=== PATIENT | female | born 1970 | race American Indian/Alaskan Native ===

== ENCOUNTER 2020-01-25 14:42 | Emergency (ER) | payer MEDICARE ==
[2020-01-25 15:09] VITALS: BP 194/114
[2020-01-25] MEDS ORDERED: MORPHINE 4 MG/1 ML INJ IV ONE (19:02)
[2020-01-25] MEDS ORDERED: ONDANSETRON 4 MG/2 ML INJ IV ONE (19:02)
--- NOTE | 2020-01-25 19:33 | Emergency Department Report ---
HPI - General Chief Complaint: Allergic Reaction Time Seen by Provider: 01/25/20 19:00 - HPI HPI: The patient 49-year-old female who presents for right lower jaw dental abscess. Patient states throat and ear pain x2 days with intermittent fever no T-max r ecorded no fever noted in triage today. Patient states pain is 8/10 right lower jaw pain is exacerbated by movement palpation and eating. Patient is swallowing p.o. however swallowing does increase pain. Patient states intermittent tinnitus. Patient states she came in today because she was unable to open her mouth. However patient is speaking in full sentences at this time. There are no relieving factors. Pain is rated at 8/10 at this time. ED Past Medical Hx - Past Medical History Previous Medical History?: Yes Hx Hypertension: Yes Hx Asthma: Yes Additional medical history: GRAVES DISEASE AFIB - Surgical History Past Surgical History?: Yes Additional Surgical History: TYROID REMOVAL, STOMACH REMOVAL, HYSTE - Social History Smoking Status: Never Smoker - Medications Home Medications: Home Medications Medication Instructions Recorded Confirmed Last Taken Type Chlorhexidine Mouthwash [Peridex] 15 ml MM BID #1 bottle 01/25/20 Unknown Rx Clindamycin [Clindamycin CAP] 300 mg PO Q8H 7 Days #21 cap 01/25/20 Unknown Rx traMADoL [Ultram] 50 mg PO Q6HR PRN #12 tablet 01/25/20 Unknown Rx ED Review of Systems ROS: Stated complaint: SWOLLEN (R) SIDE FACE Other details as noted in HPI Constitutional: fever, malaise. denies: chills Eyes: denies: eye pain, eye discharge, vision change ENT: ear pain, throat pain, dental pain Respiratory: denies: cough, shortness of breath, wheezing Cardiovascular: denies: chest pain, palpitations Endocrine: no symptoms reported Gastrointestinal: denies: abdominal pain, nausea, vomiting, diarrhea Genitourinary: denies: urgency, dysuria, discharge Musculoskeletal: denies: back pain, joint swelling, arthralgia Skin: denies: rash, lesions Neurological: denies: headache, weakness, paresthesias Psychiatric: denies: anxiety, depression Hematological/Lymphatic: denies: easy bleeding, easy bruising Physical Exam - Physical Exam Vital Signs: Vital Signs 01/25/20 15:04 Temperature 98.7 F Pulse Rate 73 Respiratory 18 Rate Blood Pressure 194/114 [Right] O2 Sat by Pulse 100 Oximetry Physical Exam: pt a/o x3 , nad, pt with focal dental abscess #30 moderate gum swelling redness, no drainage, right sided facial swelling, there is no trisumus, no stridor,airway is patent, no swelling no lesions, no exudate, right ear canal no erthema, Lungs clear bilat no wheezing, CV: S1S2 no S3 or S4, No Rub, gallap. or murmur. ED Course Vital Signs 01/25/20 15:04 Temperature 98.7 F Pulse Rate 73 Respiratory 18 Rate Blood Pressure 194/114 [Right] O2 Sat by Pulse 100 Oximetry - I & D Right Lower Jaw Type of Procedure: Simple Site: Dental abscess #30 Blade Size: 108g Progress: Anesthesia with 1% lidocaine plain via right AV block anesthesia achieved I&D with 18-gauge needle and aspiration minimal purulent drainage mild blood bleeding controlled with direct pressure with gauze. Patient tolerated procedure with minimal distress. Patient given I&D care instructions. Pain is relieved. ED Medical Decision Making - Lab Data Result diagrams: 01/25/20 19:12 01/25/20 19:12 - Radiology Data Radiology results: report reviewed, image reviewed Findings Reporting MD: Demetrius Norwood Dictation Time: January 25, 2020 20:19 Roller Engraver: Not available Switch Engineer Date: CT FACE HISTORY: Dental abscess COMPARISON: None. TECHNIQUE: Axial images of the face were obtained. Coronal and sagittal reformats were generated.All CT scans at this location are performed using CT dose reduction for ALARA by means of automated exposure control CONTRAST: None. 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 Paranasal sinuses: Clear. Orbits: No significant abnormality. Visualized images of the intracranial space: No significant abnormality. Additional findings: None. IMPRESSION: Phlegmon in the right buccal space; no abscess maturation. 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 There is no trismus. Patient forI&D of same status post AV block. Patient tolerated procedure with minimal distress pain is relieved at this time. Patient given post I&D instructions. Patient will follow-up with dentist in 2 to 3 days. Will be DC'd home with p.o. clindamycin, Ultram, Peridex mouth rinse. Patient currently tolerating p.o. intake without symptoms. Patient DC'd home in stable condition at this time. Critical care attestation.: If time is entered above; I have spent that time in minutes in the direct care of this critically ill patient, excluding procedure time. ED Disposition Clinical Impression: Dental abscess Disposition: DC-01 TO HOME OR SELFCARE Is pt being admited?: No Does the pt Need Aspirin: No Condition: Stable Instructions: Dental Abscess (ED) Additional Instructions: follow up with Dentist gonzalo, take all of your antibiotics, mouth rinse as directed. Prescriptions: Clindamycin [Clindamycin CAP] 300 mg PO Q8H 7 Days #21 cap Chlorhexidine Mouthwash [Peridex] 15 ml MM BID #1 bottle traMADoL [Ultram] 50 mg PO Q6HR PRN #12 tablet PRN Reason: Pain Referrals: [facility] [Provider Group] - 3-5 Days Forms: Work/School Release Form(ED) Time of Disposition: 21:58
[2020-01-25 19:40] LABS: Basophils % (Auto) 0.4 % (0.0-1.8); Eosinophils % (Auto) 0.7 % (0.0-4.3); Hemoglobin 11.2 gm/dl (10.1-14.3); Lymphocytes # (Auto) 1.9 K/mm3 (1.2-5.4); Lymphocytes % (Auto) 30.6 % (13.4-35.0); Mean Corpuscular HGB Conc 33 % (30-34); Mean Corpuscular Volume 85 fl (79-97); Monocytes # (Auto) 0.6 K/mm3 (0.0-0.8); Monocytes % (Auto) 9.9 % (0.0-7.3); Platelet Count 232 K/mm3 (140-440); Red Blood Count 4.02 M/mm3 (3.65-5.03); Red Cell Distribution Width 15.3 % (13.2-15.2)
[2020-01-25 20:04] LABS: Alanine Aminotransferase 13 units/L (7-56); Albumin 4.2 g/dL (3.9-5); Blood Urea Nitrogen 10 mg/dL (7-17); Calcium 9.4 mg/dL (8.4-10.2); Hemolysis Index 5
[2020-01-25 20:05] LABS: BUN/Creatinine Ratio 14
--- NOTE | 2020-01-25 21:24 | Cat Scan Report ---
CT FACE HISTORY: Dental abscess COMPARISON: None. TECHNIQUE: Axial images of the face were obtained. Coronal and sagittal reformats were generated.All CT scans at this location are performed using CT dose reduction for ALARA by means of automated expo sure control CONTRAST: None. FINDINGS: Phlegmon in the right buccal space; subcutaneous stranding in the adjacent fat; no abscess formation; dental caries and root abscess around #30 (above the mylohyoid line) chronic osteitis in the very sp amandeep on the right mandible near the angle of the mandible Right submandibular space: Radiopaque calculus right Warthin's duct; right submandibular gland is not enlarged Facial bones: No fracture or other significant abnormality. Paranasal sinuses: Clear. Orbits: No significant abnormality. Visualized images of the intracranial space: No significant abnormality. Additional findings: None. IMPRESSION: Phlegmon in the right buccal space; no abscess maturation. Abscess around #30 (above the mylohyoid line) osteitis in the medullary space of the right angle of t he mandible from chronic infection Calculus in the right Warthin's duct in the right sublingual space Signer Name: Demetrius Norwood MD Signed: 01/25/2020 9:19 PM Workstation Name: [id number]
== END 2020-01-25 22:21 | disposition home or self-care (01) ==
LOC: ED 14:42
DX: K04.7 Periapical abscess without sinus (principal); I10 Essential (primary) hypertension; J45.909 Unspecified asthma, uncomplicated; Z98.890 Other specified postprocedural states; Z79.899 Other long term (current) drug therapy
CPT/HCPCS: 36415; 41800; 70491; 80053; 85025; 96365; 96375; 99284; J2270; J2405; Q9967